=== PATIENT | female | born 1970 | race Caucasian/White ===

== ENCOUNTER → 2016-10-11 | Outpatient (CLI) | payer OTHER | LOC: BMCIMAGING 08:00 | PROVIDERS: ATTEND Nurse Practitioner Adult Health | DX: Z03.89 Encounter for observation for other suspected diseases and conditions ruled out (principal); Z84.81 Family history of carrier of genetic disease; Z80.3 Family history of malignant neoplasm of breast; Z80.0 Family history of malignant neoplasm of digestive organs ==

== ENCOUNTER → 2018-07-23 | Outpatient (CLI) | payer BC | LOC: FIMAGING 12:37 | PROVIDERS: ATTEND Family Medicine | DX: Z12.31 Encounter for screening mammogram for malignant neoplasm of breast (principal); Z80.3 Family history of malignant neoplasm of breast ==